=== PATIENT | female | born 1995 | race Caucasian/White ===

== ENCOUNTER 2020-09-22 08:56 | Outpatient (REF) | payer OTHER, SELFPAY | END 2020-09-22 08:57 | disposition home or self-care (01) | LOC: HO.LAB 08:56 | PROVIDERS: Visit Provider Internal Medicine | DX: Z20.828 Contact with and (suspected) exposure to other viral communicable diseases (principal) | CPT/HCPCS: C9803; U0003 ==

== ENCOUNTER 2020-11-02 07:47 | Outpatient (REF) | payer OTHER, SELFPAY ==
[2020-11-02 09:05] LABS: MANUAL DIFF FLAG NO
[2020-11-02 09:07] LABS: Eosinophils Absolute Auto 0.1 X10*3/uL (0.0-0.4); Imm Gran Abs Auto 0.01 X10*3/uL (0.00-0.03); Imm Gran Pct Auto 0.2 % (0.0-0.4); Lymphocytes Absolute Auto 1.5 X10*3/uL (1.2-4.9); Lymphocytes Percent Auto 37.2 % (20-40); Mean Corpuscular HGB Conc 34.3 g/dl (31.0-35.0); Mean Corpuscular Volume 90.4 fL (80-98); Monocytes Absolute Auto 0.3 X10*3/uL (0.1-1.2); Monocytes Percent Auto 7.5 % (2-11); Neutrophils Absolute Auto 2.1 X10*3/uL (2.0-8.3); Neutrophils Percent Auto 52.1 % (45-73); Platelet Count 168 X10*3/uL (160-400); Red Blood Count 3.87 X10*6/uL (4.20-5.50)
[2020-11-02 09:32] LABS: Alanine Aminotransferase 15 U/L (0-31); Albumin Level 4.5 g/dL (3.5-5.0); Alkaline Phosphatase 31 U/L (39-117); Anion Gap 12 (12-20); Aspartate Amino Transferase 14 U/L (5-31); Bilirubin Total 0.4 mg/dL (0.0-1.0); Blood Urea Nitrogen 11 mg/dL (9-16); Calcium 8.6 mg/dL (8.4-10.2); Carbon Dioxide 24 mmol/L (22-29); Chloride 107 mmol/L (96-108); Cholesterol 153 mg/dL; Estimated Glomerular Filt Rate > 60; Glucose Fasting 112 mg/dL (60-99); HDL Cholesterol 70 mg/dL; LDL Cholesterol Calculated 69 mg/dl; Sodium 139 mmol/L (135-145); Total Protein 6.9 g/dL (6.5-8.0); Triglycerides 71 mg/dL
[2020-11-02 09:47] LABS: Glucose Urine UA NEG (NEG); Leukocyte Esterase Urine NEG (NEG); Nitrite Urine NEG (NEG); Specific Gravity - Urine >= 1.030 (1.005-1.025); Urine Blood NEG (NEG); Urine Ketones NEG (NEG); Urine Protein NEG (NEG-TRACE)
[2020-11-02 09:55] LABS: Appearance Urine CLEAR; Color Urine YELLOW
[2020-11-02 09:56] LABS: TSH reflex Free T4 2.71 mIU/mL (0.32-4.0)
[2020-11-02 10:29] LABS: Vitamin B12 681 pg/mL (200-900)
== END 2020-11-02 07:48 | disposition home or self-care (01) ==
LOC: HO.LAB 07:47
PROVIDERS: PCP Internal Medicine; Visit Provider Internal Medicine
DX: Z00.00 Encounter for general adult medical examination without abnormal findings (principal); D51.9 Vitamin B12 deficiency anemia, unspecified; R53.83 Other fatigue
CPT/HCPCS: 36415; 80053; 80061; 81003; 82607; 82746; 84443; 85025

== ENCOUNTER 2021-11-08 07:00 | Outpatient (REF) | payer OTHER, SELFPAY ==
--- NOTE | ~2021-11-08 | XR_ITS ---
EXAMINATION: XR CHEST CLINICAL INFORMATION: Cough COMPARISON: Previous chest x-ray 2017 TECHNIQUE: 2 views of the chest were obtained. FINDINGS: The cardiac and mediastinal contours are normal. The lungs are clear. There is no pleural effusion or pneumothorax. There is mild curvature of the lower thoracic spine to the right. Bony structures are otherwise unremarkable. XR/XR chest 2V IMPRESSION: Unremarkable examination.
[2021-11-08 07:18] LABS: MANUAL DIFF FLAG NO
[2021-11-08 07:37] LABS: Basophils Percent Auto 0.7 % (0-2); Eosinophils Absolute Auto 0.1 X10*3/uL (0.0-0.4); Hematocrit 33.4 % (37.0-47.0); Hemoglobin 11.3 g/dl (12.0-16.0); Imm Gran Abs Auto 0.01 X10*3/uL (0.00-0.03); Imm Gran Pct Auto 0.2 % (0.0-0.4); Lymphocytes Absolute Auto 1.3 X10*3/uL (1.2-4.9); Mean Corpuscular HGB Conc 33.8 g/dl (31.0-35.0); Mean Corpuscular Hemoglobin 29.7 pg (27.0-33.0); Mean Corpuscular Volume 87.7 fL (80.0-98.0); Monocytes Absolute Auto 0.5 X10*3/uL (0.1-1.2); Neutrophils Absolute Auto 2.2 x10*3/uL (2.0-8.3); Neutrophils Percent Auto 53.1 % (45-73); Platelet Count 204 X10*3/uL (160-400); Red Blood Count 3.81 X10*6/uL (4.20-5.50); White Blood Count 4.1 X10*3/uL (4.8-10.8)
[2021-11-08 07:59] LABS: Alanine Aminotransferase 12 U/L (0-31); Albumin Level 4.5 g/dL (3.5-5.0); Alkaline Phosphatase 35 U/L (39-117); Anion Gap 10 (12-20); Aspartate Amino Transferase 12 U/L (5-31); Bilirubin Total 0.6 mg/dL (0.0-1.0); Blood Urea Nitrogen 11 mg/dL (9-16); Calcium 9.4 mg/dL (8.4-10.2); Carbon Dioxide 25 mmol/L (22-29); Chloride 107 mmol/L (96-108); Cholesterol 154 mg/dL; Estimated Glomerular Filt Rate > 60; Glucose Fasting 97 mg/dL (60-99); HDL Cholesterol 64 mg/dL; LDL Cholesterol Calculated 72 mg/dl; Potassium 3.8 mmol/L (3.3-5.1); Sodium 138 mmol/L (135-145); Total Protein 7.2 g/dL (6.5-8.0); Triglycerides 91 mg/dL
[2021-11-08 08:31] LABS: Folate 14.5 ng/mL (> or = 4.0); Vitamin B12 923 pg/mL (200-900)
[2021-11-08 09:07] LABS: Appearance Urine CLEAR; Color Urine YELLOW; Glucose Urine UA NEG (NEG); Leukocyte Esterase Urine NEG (NEG); Nitrite Urine NEG (NEG); Specific Gravity - Urine >= 1.030 (1.005-1.025); Urine Blood NEG (NEG); Urine Ketones NEG (NEG); Urine Protein NEG (NEG-TRACE)
[2021-11-09 13:31] LABS: IgA 173 mg/dL (47-310); IgG 1110 mg/dL (600-1640); IgM 139 mg/dL (50-300)
== END 2021-11-08 07:01 | disposition home or self-care (01) ==
LOC: HO.LAB 07:00
PROVIDERS: PCP Internal Medicine; Visit Provider Internal Medicine
DX: Z00.00 Encounter for general adult medical examination without abnormal findings (principal); E53.8 Deficiency of other specified B group vitamins; E55.9 Vitamin D deficiency, unspecified; R05.9 Cough, unspecified; R06.00 Dyspnea, unspecified; Z87.09 Personal history of other diseases of the respiratory system
CPT/HCPCS: 36415; 71046; 80053; 80061; 81003; 82306; 82607; 82746; 82784; 84443; 85025

== ENCOUNTER 2022-09-12 23:36 | Emergency (ER) | payer OTHER, SELFPAY ==
--- NOTE | ~2022-09-12 | US_ITS ---
EXAMINATION: OBSTETRIC ULTRASOUND - SECOND TRIMESTER CLINICAL INFORMATION: Vaginal bleeding and cramping. LMP 02/15/2022 (gestational age of 30 weeks and 0 days). COMPARISON: No similar priors. TECHNIQUE: Transabdominal imaging of the uterus was performed utilizing booth scale and color doppler technique, with m-mode imaging. FINDINGS: Single live intrauterine fetus in the cephalic position with cardiac activity detected at 126 bpm. movement is present. No perigestational hemorrhage. Examination is not targeted for evaluation of morphology or anatomy. The following biometric measurements were obtained: Biparietal diameter: 8 cm corresponding to gestational age of 32 weeks and 2 days. Head circumference: 29.3 cm corresponding to gestational age of 32 weeks and 3 days. Abdominal circumference: 24.8 cm corresponding to a gestational age of 29 weeks and 1 day. Femur length: 5.6 cm corresponding to gestational age of 29 weeks and 3 days. US/US OB limited IMPRESSION: * Single live intrauterine fetus with estimated gestational age by ultrasound of 30 weeks and 6 days. Estimated date of delivery 11/16/2022. * Estimated weight 1430 g, (26 percentile). It is important to note that this examination was not targeted for the assessment of anatomy, for which OB consultation and specialized imaging should be obtained if clinically deemed appropriate.
[2022-09-12 23:52] VITALS: BP 116/68; PULSE 82; RESP 16; TEMP 36.7; O2SAT 99; BMI 20.2
--- NOTE | 2022-09-13 00:02 | PC.NURSE ---
Pt reports she did more walking, moved some furniture, nothing really strenuous. Pt denies having any intercourse. pt reports light cramping nothing significantly. Pt is having bright red blood while wiping. Provider notified. pt change into hospital atire and awaiting to be seen . Report off to pt nurse LAUREN Bell. Will continue to monitor.
--- NOTE | 2022-09-13 00:12 | ED.PREGNANCY ---
HPI - General Chief complaint: Vaginal Bleeding Stated complaint: 30 Wks preg/Bleeding Time Seen by Provider: 09/13/22 00:00 Source: patient Mode of arrival: ambulatory Limitations: no limitations History of Present Illness HPI Narrative: 27 year old female hx of B12 deficiency A0, currently 30 weeks expected delivery date 11/22/2022 presents to the emergency department with lower abdominal pain, vaginal bleeding that started just prior to arrival. Patient reports she noted bright red blood when she went to the bathroom tonight, tells me it was coming from her vagina. Reports sharp intermitent lower abd pain that last a few seconds and then resolves. Tells me to date her prenancy has been uncomplicated, followed by [facility] Sophie Walker CNM, taking prenatals. Reports normal movement. Has only changed her liner once since this started. Patient tells me earlier today she was moving furniture, denies trauma to the area. She tells me she has intercourse today. Denies clear fluids. Deies fevers, chills, chest pain, shortness of breath, nausea, vomiting, headache, vision changes, dizziness. Related Data Home Medications Medication Instructions Recorded Confirmed prenat.vits,chetna,ewo-jiso-ooizc 1 tab PO DAILY 08/08/22 08/08/22 Previous Rx's Medication Instructions Recorded cholecalciferol (vitamin D3) 50 50 mcg PO DAILY 90 days #90 caps 08/07/22 mcg (2,000 unit) capsule Allergies Allergy/AdvReac Type Severity Reaction Status Date / Time No Known Allergies Allergy Verified 09/12/22 23:59 Review of Systems Review of Systems: Constitutional : No Weight loss, No Fever, No Chills, No Fatigue, No Malaise ENT/Mouth : No sore throat, No Rhinorrhea Eyes: No Eye Pain, No Swelling, No Redness Cardiovascular : No Chest Pain, No SOB, No Dyspnea on Exertion, No Orthopnea, No Edema, No Palpitations Respiratory : No Cough, No Sputum, No Wheezing Gastrointestinal : No Nausea, No Vomiting, No Diarrhea, No Constipation, + abdominal Pain, No Hematochezia, No Melena Genitourinary : No Dysuria, No Urinary Frequency, No Hematuria, + vaginal bleeding Musculoskeletal : No joint pain, No Myalgias, No Joint Swelling Skin : No Skin Lesions, No rash Neuro : No Weakness, No Numbness, No Dizziness, No Headache Psych : No Anxiety/Panic, No Depression All other systems reviewed and are negative Yes all other systems are reviewed and are negative [facility] Past Medical History Attestation statement: The following information was validated with the patient. Source: old records reviewed and nursing notes reviewed Medical History Vitamin B12 deficiency anemia Vitamin D deficiency Surgical History No pertinent past surgical history Family History Family History Father Poor high blood pressure control High cholesterol Hypertension Mother Poor high blood pressure control Hypertension Sister In good health Other Substance abuse Social History Social History Housing: House Alcohol intake: former Patient Tobacco Use Status: Never used Tobacco Second Hand Smoke Exposure: No Advance Directives: No Advance Directives Information Provided: No service: No Current occupational status: employed Cognitive needs: No Hearing needs: No Vision needs: No Physical Exam Vital Signs: Vital Signs: Last Vital Signs Temp 98.1 F 09/12/22 23:52 Pulse 82 09/12/22 23:52 Resp 16 09/12/22 23:52 BP 116/68 09/12/22 23:52 Pulse Ox 99 09/12/22 23:52 O2 Del Method 09/12/22 23:52 BMI result Body Mass Index 20.2 vss Appearance: Alert.? Oriented X3.? No acute distress.? Head: Normocephalic, atraumatic, no step-offs or deformities Eyes: Pupils equal, round and reactive to light.? CVS: Normal heart rate and rhythm.? Pulses normal.? Respiratory: No respiratory distress.? Breath sounds normal.? Abdomen: Soft abdomen + tenderness to lower abdomen. heart tone 139. Sterile bimanual exam: Closed cervical os, there is scant blood noted within the vaginal canal, bright red, no clots, mild adnexal tenderness b/l. Skin: Skin warm and dry.? Normal skin color.? Normal skin turgor.? Extremities: 5/5 strength to bilateral upper and lower extremities Neuro: Oriented X 3.? No motor deficit.? No sensory deficit. CN 2-12 intact Course Reevaluation(s) Reevaluation #1: Patient will go to [facility] to service of Dr.Kelly Aguilar for further evaluation and treatment as we do not have OBGYN here, and patient requires higher level of care. Time: 00:40 Reevaluation #2: Patient with slight normocytic anemia likely secondary to or vaginal bleeding. Chemistry and ultrasound pending. Time: 00:54 Reevaluation #3: Chemistry with no acute electrolyte abnormalities requiring intervention. Patient COVID negative. Ultrasound is done however results pending. Time: 01:10 Additional Reevaluation(s): At this time ambulance company here for transfer to [facility]. At time of transport patient hemodynamically stable. MDM - OB/Uterine Contractions MDM Narrative Medical decision making narrative: 0010 27-year-old female presents with painful vaginal bleeding, currently 30 weeks . Also reporting associated lower abdominal discomfort described as stabbing and intermittent in nature. Uncomplicated to date. This is patient's 1st . Followed by [facility] OBGYN. Denies trauma to the abdomen. Physical examination with discomfort with palpation to lower abdomen, patient with a abdomen soft with heart tones present at 139 beats per minute. Patient reports normal movement throughout exam. Bimanual exam revealing a closed cervical os, with mild red blood within vaginal canal, mild adnexal tenderness. Concerns for possible placenta previa versus placenta abruptio versus subchorionic hemorrhage. Or abnormal bleeding in 3rd trimester. As this facility does not have OBGYN will reach out to [facility] were patient is followed regularly. In the meantime will obtain labs, hCG, ultrasound, type and screen. I did personally do a ultrasound at bedside which showed heart tones 139, normal movement, cardiac activity noted, no signs of subchorionic hemorrhage. Will obtain a pelvic and transvaginal OB ultrasound at this time. Medical Records Attestation: I reviewed the patient's medical records. Lab Data Attestation: I reviewed the patient's lab results. Result diagrams: 09/13/22 00:43 09/13/22 00:43 Labs: Lab Results 09/13/22 09/13/22 09/13/22 Range/Units 00:43 00:43 00:45 WBC 6.3 (4.8-10.8) X10*3/uL RBC 3.27 L (4.20-5.50) X10*6/uL Hgb 10.4 L (12.0-16.0) g/dl Hct 29.5 L (37.0-47.0) % MCV 90.2 (80.0-98.0) fL MCH 31.8 (27.0-33.0) pg MCHC 35.3 H (31.0-35.0) g/dl RDW 13.9 (11.0-16.0) % Plt Count 160 (160-400) X10*3/uL MPV 10.1 (9.4-12.3) fL Immature Gran % (Auto) 0.6 H (0.0-0.4) % Neut % (Auto) 61.8 (45-73) % Lymph % (Auto) 26.4 (20-40) % [place] % (Auto) 10.0 (2-11) % Eos % (Auto) 0.9 (0-4) % Baso % (Auto) 0.3 (0-2) % Lymph # (Auto) 1.7 (1.2-4.9) X10*3/uL [place] # (Auto) 0.6 (0.1-1.2) X10*3/uL Eos # (Auto) 0.1 (0.0-0.4) X10*3/uL Baso # (Auto) 0.0 (0.0-0.2) X10*3/uL Abs Immat Gran (auto) 0.04 H (0.00-0.03) X10*3/uL Absolute Neuts (auto) 3.9 (2.0-8.3) x10*3/uL Absolute Nucleated RBC 0.000 (0.0-0.012) X10*3/uL Nucleated RBC % (auto) 0.0 (0.0-0.2) /100WBC Sodium 141 (135-145) mmol/L Potassium 3.9 (3.3-5.1) mmol/L Chloride 109 H (96-108) mmol/L Carbon Dioxide 20 L (22-29) mmol/L Anion Gap 16 (12-20) BUN 6 L (9-16) mg/dL Creatinine 0.57 (0.5-1.4) mg/dL Estim Creat Clear Calc 134.5 Estimated GFR > 60 Random Glucose 75 (60-115) mg/dL Calcium 8.8 D (8.4-10.2) mg/dL Total Bilirubin 0.2 (0.0-1.0) mg/dL AST 20 D (5-31) U/L ALT 20 (0-31) U/L Alkaline Phosphatase 50 D (39-117) U/L Total Protein 6.4 L (6.5-8.0) g/dL Albumin 3.7 (3.5-5.0) g/dL COVID-19 (EVELIO) Negative (Negative) COVID-19 Clin Com See Note Critical Care Time Critical Care Time Critical Care Time: Yes Total Critical Care Time: 45 Attestation: I attest to this time spent taking care of the patient, obtaining history, physical, reviewing labs, imaging, speaking to my attending, speaking to specialist. Discharge Plan Discharge Clinical Impression: Vaginal bleeding during , Bilateral lower abdominal pain Patient Disposition: [facility] Transfer Details: Patient will go to [facility] to service of Dr.Kelly Aguilar Prescriptions: No Action cholecalciferol (vitamin D3) 50 mcg (2,000 unit) capsule 50 mcg PO DAILY 90 Days Qty: 90 3RF prenat.vits,chetna,mya-ouge-vapeb Tablet 1 tab PO DAILY
[2022-09-13 00:48] LABS: Basophils Percent Auto 0.3 % (0-2); Eosinophils Absolute Auto 0.1 X10*3/uL (0.0-0.4); Eosinophils Percent Auto 0.9 % (0-4); Hematocrit 29.5 % (37.0-47.0); Hemoglobin 10.4 g/dl (12.0-16.0); Imm Gran Abs Auto 0.04 X10*3/uL (0.00-0.03); Imm Gran Pct Auto 0.6 % (0.0-0.4); Lymphocytes Absolute Auto 1.7 X10*3/uL (1.2-4.9); Lymphocytes Percent Auto 26.4 % (20-40); MANUAL DIFF FLAG NO; Mean Corpuscular HGB Conc 35.3 g/dl (31.0-35.0); Mean Corpuscular Hemoglobin 31.8 pg (27.0-33.0); Mean Corpuscular Volume 90.2 fL (80.0-98.0); Mean Platelet Volume 10.1 fL (9.4-12.3); Monocytes Absolute Auto 0.6 X10*3/uL (0.1-1.2); Neutrophils Absolute Auto 3.9 x10*3/uL (2.0-8.3); Neutrophils Percent Auto 61.8 % (45-73); Platelet Count 160 X10*3/uL (160-400); Red Blood Count 3.27 X10*6/uL (4.20-5.50); Red Cell Distribution Width 13.9 % (11.0-16.0); White Blood Count 6.3 X10*3/uL (4.8-10.8)
--- NOTE | 2022-09-13 00:54 | PC.NURSE ---
Call out to [facility] @005 spoke to oLrenzo to book an ALS ambulance to [facility]
[2022-09-13 01:05] LABS: COVID-19 Test Negative (Negative)
[2022-09-13 01:06] LABS: Alanine Aminotransferase 20 U/L (0-31); Albumin Level 3.7 g/dL (3.5-5.0); Alkaline Phosphatase 50 U/L (39-117); Anion Gap 16 (12-20); Aspartate Amino Transferase 20 U/L (5-31); Bilirubin Total 0.2 mg/dL (0.0-1.0); Blood Urea Nitrogen 6 mg/dL (9-16); Calcium 8.8 mg/dL (8.4-10.2); Carbon Dioxide 20 mmol/L (22-29); Chloride 109 mmol/L (96-108); Creatinine Clr Calc Pharmacy 134.5; Estimated Glomerular Filt Rate > 60; Glucose Random 75 mg/dL (60-115); Potassium 3.9 mmol/L (3.3-5.1); Sodium 141 mmol/L (135-145); Total Protein 6.4 g/dL (6.5-8.0)
[2022-09-13 01:15] LABS: Appearance Urine Clear; Color Urine Yellow; Glucose Urine UA Negative (Negative); Leukocyte Esterase Urine Moderate (2+) (Negative); Nitrite Urine Negative (Negative); Specific Gravity - Urine <= 1.005 (1.005-1.025); UMIC TRIGGER UACC YES; Urine Blood Negative (Negative); Urine Ketones Negative (Negative); Urine Protein Negative (Neg-Trace)
[2022-09-13 01:17] LABS: Bacteria Urine 1+ (None Seen); Hyaline Casts Urine 0-2 /LPF (0-2); RBC Urine 0-2 /HPF (0-2); UACC Culture Trigger YES
--- NOTE | 2022-09-13 01:20 | PC.NURSE ---
nurse to nurse
--- NOTE | 2022-09-13 01:33 | PC.NURSE ---
RN to RN report provided to LAUREN Jonas at [facility] [place]. Pt being transferred [facility]
[2022-09-13 01:35] LABS: HCG Quantitative 25495 mIU/mL
== END 2022-09-13 01:35 | disposition short-term general hospital (02) ==
PROVIDERS: Physician Assistant; Emergency Provider Internal Medicine; PCP Internal Medicine
DX: O20.0 Threatened abortion (principal); R10.2 Pelvic and perineal pain; Z20.822 Contact with and (suspected) exposure to COVID-19; Z79.899 Other long term (current) drug therapy
CPT/HCPCS: 36415; 76815; 80053; 81001; 84702; 85025; 86850; 86900; 86901; 87086; 87635; 99285

== ENCOUNTER 2023-02-20 10:07 | Outpatient (REF) | payer OTHER, SELFPAY ==
[2023-02-20 10:28] LABS: MANUAL DIFF FLAG NO
[2023-02-20 13:19] LABS: Basophils Percent Auto 0.7 % (0-2); Eosinophils Absolute Auto 0.1 X10*3/uL (0.0-0.4); Eosinophils Percent Auto 1.6 % (0-4); Hematocrit 36.8 % (37.0-47.0); Hemoglobin 12.6 g/dl (12.0-16.0); Imm Gran Abs Auto 0.01 X10*3/uL (0.00-0.03); Imm Gran Pct Auto 0.2 % (0.0-0.4); Lymphocytes Absolute Auto 1.4 X10*3/uL (1.2-4.9); Lymphocytes Percent Auto 32.6 % (20-40); Mean Corpuscular HGB Conc 34.2 g/dl (31.0-35.0); Mean Corpuscular Hemoglobin 30.1 pg (27.0-33.0); Mean Corpuscular Volume 87.8 fL (80.0-98.0); Mean Platelet Volume 11.6 fL (9.4-12.3); Monocytes Absolute Auto 0.3 X10*3/uL (0.1-1.2); Monocytes Percent Auto 7.7 % (2-11); Neutrophils Absolute Auto 2.5 x10*3/uL (2.0-8.3); Neutrophils Percent Auto 57.2 % (45-73); Platelet Count 198 X10*3/uL (160-400); Red Blood Count 4.19 X10*6/uL (4.20-5.50); Red Cell Distribution Width 13.2 % (11.0-16.0); White Blood Count 4.3 X10*3/uL (4.8-10.8)
[2023-02-20 13:55] LABS: Alanine Aminotransferase 19 U/L (0-31); Albumin Level 4.6 g/dL (3.5-5.0); Alkaline Phosphatase 58 U/L (39-117); Anion Gap 13 (12-20); Aspartate Amino Transferase 19 U/L (5-31); Bilirubin Total 0.8 mg/dL (0.0-1.0); Blood Urea Nitrogen 13 mg/dL (9-16); Calcium 9.1 mg/dL (8.4-10.2); Carbon Dioxide 23 mmol/L (22-29); Chloride 109 mmol/L (96-108); Cholesterol 167 mg/dL; Estimated Glomerular Filt Rate > 60; Glucose Fasting 79 mg/dL (60-99); HDL Cholesterol 66 mg/dL; LDL Cholesterol Calculated 90 mg/dl; Potassium 4.2 mmol/L (3.3-5.1); Sodium 141 mmol/L (135-145); Triglycerides 59 mg/dL
[2023-02-20 14:00] LABS: Appearance Urine Clear; Color Urine Yellow; Glucose Urine UA Negative (Negative); Leukocyte Esterase Urine Trace (Negative); Nitrite Urine Negative (Negative); UMIC TRIGGER UACC YES; Urine Blood Negative (Negative); Urine Ketones Negative (Negative); Urine Protein Negative (Neg-Trace)
[2023-02-20 14:05] LABS: Bacteria Urine None Seen (None Seen); Hyaline Casts Urine 0-2 /LPF (0-2); RBC Urine 0-2 /HPF (0-2); Squamous Epithelial Cell Urine 0-2 /HPF (0-2); WBC Urine 0-5 /HPF (0-5)
[2023-02-20 14:09] LABS: Folate 17.6 ng/mL (> or = 4.0); TSH reflex Free T4 1.57 uIU/mL (0.32-4.0); Vitamin B12 923 pg/mL (200-900); Vitamin D 25-OH Total 26.1 ng/mL (>30)
== END 2023-02-20 10:08 | disposition home or self-care (01) ==
LOC: HO.LAB 10:07
PROVIDERS: PCP Internal Medicine; Visit Provider Internal Medicine
DX: Z00.00 Encounter for general adult medical examination without abnormal findings (principal); E78.00 Pure hypercholesterolemia, unspecified; E55.9 Vitamin D deficiency, unspecified; D51.9 Vitamin B12 deficiency anemia, unspecified
CPT/HCPCS: 36415; 80053; 80061; 81001; 81003; 82306; 82607; 82746; 84443; 85025

== ENCOUNTER 2024-02-19 07:17 | Outpatient (REF) | payer OTHER, SELFPAY ==
[2024-02-19 11:28] LABS: MANUAL DIFF FLAG NO
[2024-02-19 11:50] LABS: Basophils Percent Auto 0.7 % (0-2); Eosinophils Absolute Auto 0.1 X10*3/uL (0.0-0.4); Eosinophils Percent Auto 1.9 % (0-4); Hematocrit 33.7 % (37.0-47.0); Hemoglobin 11.5 g/dl (12.0-16.0); Imm Gran Abs Auto 0.02 X10*3/uL (0.00-0.03); Imm Gran Pct Auto 0.5 % (0.0-0.4); Lymphocytes Absolute Auto 1.3 X10*3/uL (1.2-4.9); Lymphocytes Percent Auto 30.3 % (20-40); Mean Corpuscular HGB Conc 34.1 g/dl (31.0-35.0); Mean Corpuscular Hemoglobin 30.3 pg (27.0-33.0); Mean Corpuscular Volume 88.7 fL (80.0-98.0); Mean Platelet Volume 11.2 fL (9.4-12.3); Monocytes Absolute Auto 0.5 X10*3/uL (0.1-1.2); Monocytes Percent Auto 10.8 % (2-11); Neutrophils Absolute Auto 2.4 x10*3/uL (2.0-8.3); Neutrophils Percent Auto 55.8 % (45-73); Platelet Count 176 X10*3/uL (160-400); Red Cell Distribution Width 13.6 % (11.0-16.0); White Blood Count 4.3 X10*3/uL (4.8-10.8)
[2024-02-19 11:58] LABS: Appearance Urine Cloudy; Color Urine Yellow; Glucose Urine UA Negative (Negative); Leukocyte Esterase Urine Small (1+) (Negative); Nitrite Urine Negative (Negative); PH 5.5 (5.0-9.0); Specific Gravity - Urine 1.025 (1.005-1.025); UMIC TRIGGER UACC YES; Urine Blood Small (1+) (Negative); Urine Ketones Negative (Negative); Urine Protein Negative (Neg-Trace)
[2024-02-19 12:32] LABS: Bacteria Urine 3+ (None Seen); Hyaline Casts Urine 0-2 /LPF (0-2); RBC Urine 0-2 /HPF (0-2); UACC Culture Trigger YES; WBC Urine 21-50 /HPF (0-5)
[2024-02-19 17:58] LABS: Alanine Aminotransferase 13 U/L (0-31); Albumin Level 4.2 g/dL (3.5-5.0); Alkaline Phosphatase 35 U/L (39-117); Anion Gap 10 (12-20); Aspartate Amino Transferase 14 U/L (5-31); Bilirubin Total 0.3 mg/dL (0.0-1.0); Blood Urea Nitrogen 8 mg/dL (9-16); Calcium 8.8 mg/dL (8.4-10.2); Carbon Dioxide 24 mmol/L (22-29); Chloride 109 mmol/L (96-108); Cholesterol 136 mg/dL (<200); Estimated Glomerular Filt Rate > 60; Glucose Fasting 93 mg/dL (60-99); HDL Cholesterol 53 mg/dL (>40); LDL Cholesterol Calculated 71 mg/dL (<100); Potassium 3.7 mmol/L (3.3-5.1); Sodium 139 mmol/L (135-145); Total Protein 6.9 g/dL (6.5-8.0); Triglycerides 64 mg/dL (<150)
[2024-02-19 18:17] LABS: TSH reflex Free T4 2.67 uIU/mL (0.32-4.0); Vitamin D 25-OH Total 31.7 ng/mL (>30)
[2024-02-19 19:30] LABS: Folate 10.6 ng/mL (> or = 4.0); Vitamin B12 1236 pg/mL (200-900)
== END 2024-02-19 07:18 | disposition home or self-care (01) ==
LOC: HO.WFDLDS 07:17
PROVIDERS: Visit Provider Internal Medicine
DX: Z00.00 Encounter for general adult medical examination without abnormal findings (principal); I10 Essential (primary) hypertension; E53.8 Deficiency of other specified B group vitamins; E55.9 Vitamin D deficiency, unspecified; E78.00 Pure hypercholesterolemia, unspecified; R30.0 Dysuria
CPT/HCPCS: 36415; 80053; 80061; 81001; 81003; 82306; 82607; 82746; 84443; 85025; 87086

== ENCOUNTER 2024-03-03 17:14 | Outpatient (AMB) | payer OTHER, SELFPAY ==
[2024-03-03 17:34] VITALS: BP 102/68; BMI 19.9
--- NOTE | 2024-03-03 17:34 | MHC.PC.OV ---
Vital Signs 03/03/24 17:34 Height 5 ft 7 in Weight 127 lb BMI 19.9 BP 102/68 Blood Pressure Location Lt brachial Position Sitting Intake Visit Reasons: pe Intake Note: Patient here for a physical exam Staff Engineer Required: No Accompanied by: Self / Same As Patient Allergies No Known Allergies Allergy (Verified 03/03/24 18:05) Medication List - Last Reconciled 03/03/24 by Chivo Wang MD cholecalciferol (vitamin D3) 50 mcg PO DAILY 90 days ferrous sulfate 325 mg PO DAILY Tobacco use date assessed: 03/03/24 Dental Screening Dental Screen Date: 03/03/24 Did you have a dental visit in the last 12 months?: Yes Did you have a dental problem in the last 6 months where you did not have access to dental care?: No Was dental information given to patient?: Patient has dentist HPI pe HPI Details Patient comes in today for her annual physical examination States that she feels okay She denies any headaches or dizziness Denies any chest pains, no SOB No nausea/vomiting, no abdominal pain No change in bowel habits noted Denies any acute urinary symptoms States that she just had an IUD inserted by her beater out a couple of months ago and recalls that she had a lot of vaginal bleeding shortly afterwards but this has subsided now She is up-to-date with her annual pap smear and gynecologic exam Adds that she has been going to her chiropractor every 2 weeks for a while now to help address her recurrent neck and back pains Feels that the chiropractic treatments that she has been getting are helping She presently has a 15 months old toddler at home and states that her neck and back have been bothering her a lot since she gave more than a year ago She had her follow up labs done a couple of weeks ago - to discuss her results [facility] Medical History Vitamin D deficiency Vitamin B12 deficiency anemia Surgical History No pertinent past surgical history Family History Father Poor high blood pressure control High cholesterol Hypertension Mother Poor high blood pressure control Hypertension Sister In good health Other Substance abuse Social History Housing: House Alcohol intake: current Alcohol intake frequency: holidays/special occasions only Alcohol type: wine and hard liquor Patient Tobacco Use Status: Never used Tobacco e-Cigarette/Vaping Use: Never Used Second Hand Smoke Exposure: No service: No Current occupational status: employed Current occupational exposures/hazards: No Cognitive needs: No Hearing needs: No Vision needs: No Questionnaire PHQ-9 Over the last 2 weeks, how often have you been bothered by any of the following problems? 1. Little interest or pleasure in doing things: not at all 2. Feeling down, depressed, or hopeless: not at all 3. Trouble falling or staying asleep, or sleeping too much: not at all 4. Feeling tired or having little energy: not at all 5. Poor appetite or overeating: not at all 6. Feeling bad about yourself - or that you are a failure or have let yourself or your family down: not at all 7. Trouble concentrating on things, such as reading the newspaper or watching television: not at all 8. Moving or speaking so slowly that other people could have noticed. Or the opposite - being so fidgety or restless that you have been moving around a lot more than usual: not at all 9. Thoughts that you would be better off or of hurting yourself in some way: not at all Total score: 0 Depression Screening Interpretation: Negative Depression Screening Done: Yes 18738 - PHQ-9 Billing: Yes Source: Developed by Drs. Khurram Maria, Mell Webber, Sammy Erickson and colleagues, with an educational ale from [email or web address]. Thrive Questionnaire Date Thrive assessed: 03/03/24 I am a: Patient What is your living situation today?: I have a steady place to live Within the past 12 months, did the food you bought not last and you didn't have the money to get more?: Never true Within the past 12 months, did you worry whether your food would run out before you got money to buy more?: Never true Do you have trouble paying for medicines?: No Do you have trouble getting transportation to medical appointments?: No Do you have trouble paying your heating and electricity bill?: No Do you have trouble taking care of your child, family member or friend?: No Do you have trouble with day-to-day activities such as bathing, preparing meals, shopping, managing finances, etc.?: No Are you currently unemployed and looking for a job?: No Are you interested in more education?: No Please select the resources that you would like help with: None Currently or been in a relationship where the following occur: no concerns reported THRIVE Score: 0 AUDIT C Alcohol Use Questionnaire (AUDIT-C) 1. How often do you have a drink containing alcohol?: Monthly or less 2. How many drinks containing alcohol do you have on a typical day when you are drinking?: 1 or 2 3. How often do you have six or more drinks on one occasion?: Never Total Score: 1 Score Reviewed/Action Taken: Yes CHRISTEL-7 AMB Questionnaire CHRISTEL-7 Date CHRISTEL - 7 assessed: 03/03/24 Feeling nervous, anxious, or on edge: 1 = Several days Not being able to stop or control worryin = Not at all Worrying too much about different things: 1 = Several days Trouble relaxin = Several days Being so restless that it is hard to sit still: 0 = Not at all Becoming easily annoyed or irritable: 1 = Several days Feeling afraid as if something awful might happen: 1 = Several days Total CHRISTEL-7 score (0-4 normal; 5-9 mild; 10-14 moderate; 15-21 severe): 5 Source: Developed by Drs. Khurram Maria, Mell Webber, Sammy Erickson and colleagues, with an educational ale from [email or web address]. Review of Systems Const Denies chills, Denies fatigue, Denies fever(s), Denies headache(s) and Denies malaise Eyes Denies blurry vision, Denies change in vision, Denies irritation and Denies itchy eyes ENT Denies dysphagia, Denies dizziness, Denies otalgia, Denies headache(s), Denies nasal congestion, Reports neck pain (recurrent), Denies odynophagia, Denies sinus pain and Denies sore throat Card Denies chest pain, Denies rapid heart rate, Denies irregular heart rhythm, Denies palpitations and Denies dyspnea Resp Denies chest congestion, Denies cough, Denies dyspnea and Denies wheezing GI Denies abdominal pain, Denies bloating, Denies constipation, Denies dysphagia, Denies heartburn, Denies diarrhea, Denies nausea, Denies odynophagia and Denies vomiting Denies hematuria, Denies urinary frequency, Denies dysuria, Denies urinary incontinence and Denies urinary urgency Musc Reports as per HPI, Reports back pain (recurrent), Denies arthralgias, Denies joint swelling, Denies muscle weakness and Reports neck pain (recurrent) Skin/Breast Denies breast pain, Denies breast mass, Denies change in pigmentation, Denies lesions, Denies rash and Denies unusual bruising Neuro Denies dizziness, Denies headache(s) and Denies paresthesias Psych Denies anxiety and Denies depression Endo Denies fatigue and Denies palpitations Rowdy/Lymph Denies easy bruising Aller/Immun Denies itchy eyes and Denies wheezing Physical exam (Primary Care) Vital Signs: Last Vital Signs BP 102/68 03/03/24 17:34 BMI result Body Mass Index 19.9 Tobacco/Smoking Status: Tobacco use Status Tobacco use date assessed 03/03/24 03/03/24 17:41 Patient Tobacco Use Status Never used Tobacco 03/03/24 17:41 e-Cigarette/Vaping Use Never Used 03/03/24 17:41 PHQ-9: PHQ-9 Score PHQ-9: Total score 0 03/03/24 17:41 Depression Screening Interpretation: Negative Thrive Assessment: Date of Thrive Assessment Date Thrive assessed 03/03/24 03/03/24 17:41 Currently or been in a relationship where the following occur: no concerns reported Const General: no acute distress, alert and awake Orientation/consciousness: patient oriented x3 HENMT Head: Yes normocephalic and Yes atraumatic Ears: external ears normal, TM's normal bilaterally and EAC's normal General nose exam: No nasal discharge present Face and sinus: Yes normal facial exam and Yes sinuses nontender Teeth and gingiva: dentition normal Throat: Yes posterior oropharynx normal and Yes tonsils normal (no TP congestion) Eyes Eyelids: Yes eyelids normal Conjunctivae: conjunctivae normal Pupils: Equal, round and reactive pupils present EOM: EOMs intact bilaterally Neck Neck: Yes no lymphadenopathy and Yes supple Thyroid: Thyroid normal Resp Auscultation: clear to auscultation bilaterally, no rales and no wheezes Cardio Rate: regular rate Rhythm: regular rhythm Heart sounds: no murmurs GI Palpation (GI): Soft to palpation, nontender and No hepatosplenomegaly present Auscultation: normal bowel sounds General: Yes no CVA tenderness Back/Spine/Pelvis Back: no CVA tenderness Cervical Spine: cervical muscular tenderness and No Cervical spine tenderness Thoracic/Lumbar Spine: paraspinal muscle tenderness bilaterally in the mid thoracic, in the lower thoracic, in the upper lumbar, in the mid lumbar and in the lower lumbar, No thoracic spinal tenderness and No lumbar spinal tenderness Skin Lesions: no lesions Rashes: no rashes Neuro General: patient oriented x3, moves all extremities, no focal motor deficits and CN's II-XI intact bilaterally Cranial nerves: Yes Equal, round and reactive pupils present Cognition (Neuro): normal cognition Gait exam (Neuro): Normal gait present Extrem General: Yes no clubbing, cyanosis or edema Results Reviewed Results Reviewed: Laboratory Tests 02/19/24 02/19/24 07:20 07:24 WBC 4.3 L Hgb 11.5 L Hct 33.7 L Plt Count 176 Sodium 139 Potassium 3.7 Creatinine 0.67 Estimated GFR > 60 Fasting Glucose 93 Calcium 8.8 AST 14 ALT 13 Triglycerides 64 Cholesterol 136 LDL Cholesterol, Calc 71 HDL Cholesterol 53 Vitamin B12 1236 H 25-OH Vitamin D Total 31.7 TSH 2.67 Ur Specific [place] 1.025 Urine Protein Negative Urine Glucose (UA) Negative Urine Blood Small (1+) H Urine Nitrite Negative Ur Leukocyte Esterase Small (1+) H Assessment and Plan Assessment & Plan (1) Annual physical exam: Code(s): Z00.00 - Encounter for general adult medical examination without abnormal findings Plan: Results of her labs done a couple of weeks ago reviewed and discussed with patient She is up-to-date with her annual pap smear and gynecology exam (2) Reactive airway disease: Code(s): J45.909 - Unspecified asthma, uncomplicated Qualifiers: Asthma severity: unspecified severity Asthma persistence: unspecified Asthma complication type: with acute exacerbation Qualified Code(s): J45.901 - Unspecified asthma with (acute) exacerbation Plan: Chest x-rays done in November 2021 came out normal Immunoglobulin panel done to assess her Hx of frequent respiratory infections in November 2021 also came out normal Allergy testing was held due to her back then; can be revisited anytime patient feels ready and if she still wants to get this done Patient is advised that she can continue using her Albuterol HFA 1 to 2 inhalations Q 6 hours as needed (3) Vitamin B12 deficiency anemia: Code(s): D51.9 - Vitamin B12 deficiency anemia, unspecified Qualifiers: Vitamin B12 deficiency anemia type: other dietary B12 deficiency Qualified Code(s): D51.3 - Other dietary vitamin B12 deficiency anemia Plan: Corrected; her B12 level on her labs done a couple of weeks ago is now very high at >1000 (1236 pg/ml) Continue Ferrous sulfate 325 mg QD She is advised to try cutting back on her B12 1000 mcg tablets to 1 tablet twice a week for now (4) Anemia: Code(s): D64.9 - Anemia, unspecified Qualifiers: Anemia type: unspecified type Qualified Code(s): D64.9 - Anemia, unspecified Plan: Advised that this is likely due to a combination of iron deficiency as well as blood loss She developed anemia while she was last year - she was seen and evaluated by hematology and was recommended to just take oral iron supplements as all of her tests came back normal Continue Ferrous Sulfate 325 mg QD Will recheck her CBC in 1 year for follow up (5) Vitamin D deficiency: Code(s): E55.9 - Vitamin D deficiency, unspecified Plan: Corrected on her recent labs Continue OTC Vitamin D3 2000 units QD (6) Neck pain: Code(s): M54.2 - Cervicalgia Plan: Is most likely musculoskeletal and also likely related to posture She has been receiving treatments regularly every couple of weeks from her chiropractor and she feels that the treatments are helping (7) Back pain: Code(s): M54.9 - Dorsalgia, unspecified Qualifiers: Back pain location: back pain in unspecified location Chronicity: unspecified Back pain laterality: bilateral Qualified Code(s): M54.9 - Dorsalgia, unspecified Plan: Is also likely musculoskeletal Continue chiropractic treatments every 2 weeks as scheduled - patient feels that her treatments are helping Is advised to call if she feels that her back (and neck) symptoms are progressing despite regularl chiropractic treatments Plan To return in 1 year for her next annual physical examination Orders: Orders Vitamin D 25-OH Total 350 Days E55.9 - Vitamin D deficiency, unspecified, Z00.00 - Encounter for general adult medical examination without abnormal findings Complete Blood Count Auto Diff 350 Days D64.9 - Anemia, unspecified, Z00.00 - Encounter for general adult medical examination without abnormal findings Comprehensive [place]. Panel Fast 350 Days E78.00 - Pure hypercholesterolemia, unspecified, Z00.00 - Encounter for general adult medical examination without abnormal findings Lipid Panel 350 Days E78.00 - Pure hypercholesterolemia, unspecified, Z00.00 - Encounter for general adult medical examination without abnormal findings TSH reflex Free T4 350 Days E78.00 - Pure hypercholesterolemia, unspecified, Z00.00 - Encounter for general adult medical examination without abnormal findings UA CC w/rflx Micro + Cult 350 Days R30.0 - Dysuria, Z00.00 - Encounter for general adult medical examination without abnormal findings Vitamin B12 and Folate 350 Days E53.8 - Deficiency of other specified B group vitamins, Z00.00 - Encounter for general adult medical examination without abnormal findings Coding Level of Care Code Est Pt Prev Care [id number]) Diagnoses Annual physical exam Z00.00 Reactive airway disease with acute exacerbation, unspecified asthma severity, unspecified whether persistent J45.901 Asthma severity: unspecified severity Asthma persistence: unspecified Asthma complication type: with acute exacerbation Other dietary vitamin B12 deficiency anemia D51.3 Vitamin B12 deficiency anemia type: other dietary B12 deficiency Anemia, unspecified type D64.9 Anemia type: unspecified type Vitamin D deficiency E55.9 Neck pain M54.2 Bilateral back pain, unspecified back location, unspecified chronicity M54.9 Back pain location: back pain in unspecified location Chronicity: unspecified Back pain laterality: bilateral
== END 2024-03-03 18:13 | disposition home or self-care (01) ==
PROVIDERS: PCP Internal Medicine; Visit Provider Internal Medicine
DX: Z00.00 Encounter for general adult medical examination without abnormal findings (principal); J45.901 Unspecified asthma with (acute) exacerbation; D51.3 Other dietary vitamin B12 deficiency anemia; D64.9 Anemia, unspecified; E55.9 Vitamin D deficiency, unspecified; M54.2 Cervicalgia; M54.9 Dorsalgia, unspecified
CPT/HCPCS: 99395

== ENCOUNTER 2025-03-03 07:48 | Outpatient (REF) | payer OTHER, SELFPAY ==
[2025-03-03 11:30] LABS: MANUAL DIFF FLAG NO
[2025-03-03 11:39] LABS: Appearance Urine Clear; Color Urine Yellow; Glucose Urine UA Negative (Negative); Leukocyte Esterase Urine Small (1+) (Negative); Nitrite Urine Negative (Negative); PH 5.5 (5.0-9.0); Specific Gravity - Urine 1.025 (1.005-1.025); UMIC TRIGGER UACC YES; Urine Blood Large (3+) (Negative); Urine Ketones Negative (Negative); Urine Protein Negative (Neg-Trace)
[2025-03-03 11:42] LABS: Eosinophils Absolute Auto 0.3 X10*3/uL (0.0-0.4); Eosinophils Percent Auto 6.5 % (0-4); Hematocrit 33.8 % (37.0-47.0); Hemoglobin 11.3 g/dl (12.0-16.0); Imm Gran Abs Auto 0.01 X10*3/uL (0.00-0.03); Imm Gran Pct Auto 0.3 % (0.0-0.4); Lymphocytes Absolute Auto 1.4 X10*3/uL (1.2-4.9); Lymphocytes Percent Auto 35.8 % (20-40); Mean Corpuscular HGB Conc 33.4 g/dl (31.0-35.0); Mean Corpuscular Hemoglobin 29.4 pg (27.0-33.0); Mean Platelet Volume 10.9 fL (9.4-12.3); Monocytes Absolute Auto 0.3 X10*3/uL (0.1-1.2); Monocytes Percent Auto 7.5 % (2-11); Neutrophils Percent Auto 48.9 % (45-73); Platelet Count 185 X10*3/uL (160-400); Red Blood Count 3.84 X10*6/uL (4.20-5.50); Red Cell Distribution Width 13.1 % (11.0-16.0)
[2025-03-03 11:52] LABS: Bacteria Urine Trace (None Seen); Hyaline Casts Urine 0-2 /LPF (0-2); UACC Culture Trigger YES
[2025-03-03 12:02] LABS: Alanine Aminotransferase 17 U/L (0-31); Albumin Level 4.3 g/dL (3.5-5.0); Alkaline Phosphatase 32 U/L (39-117); Anion Gap 10 (12-20); Aspartate Amino Transferase 22 U/L (5-31); Bilirubin Total 0.3 mg/dL (0.0-1.0); Blood Urea Nitrogen 9 mg/dL (9-16); Calcium 8.8 mg/dL (8.4-10.2); Carbon Dioxide 26 mmol/L (22-29); Chloride 108 mmol/L (96-108); Cholesterol 153 mg/dL (<200); Estimated Glomerular Filt Rate > 60; Glucose Fasting 92 mg/dL (60-99); HDL Cholesterol 60 mg/dL (>40); LDL Cholesterol Calculated 83 mg/dL (<100); Potassium 3.9 mmol/L (3.3-5.1); Sodium 140 mmol/L (135-145); Total Protein 6.9 g/dL (6.5-8.0); Triglycerides 51 mg/dL (<150)
[2025-03-03 12:20] LABS: TSH reflex Free T4 2.08 uIU/mL (0.32-4.0); Vitamin D 25-OH Total 49.5 ng/mL (>30)
[2025-03-03 12:25] LABS: Folate 12.1 ng/mL (> or = 4.0); Vitamin B12 1367 pg/mL (200-900)
== END 2025-03-03 07:49 | disposition home or self-care (01) ==
LOC: HO.WFDLDS 07:48
PROVIDERS: Visit Provider Internal Medicine
DX: Z00.00 Encounter for general adult medical examination without abnormal findings (principal); E78.00 Pure hypercholesterolemia, unspecified; E55.9 Vitamin D deficiency, unspecified; D64.9 Anemia, unspecified; E53.8 Deficiency of other specified B group vitamins; R30.0 Dysuria
CPT/HCPCS: 36415; 80053; 80061; 81001; 82306; 82607; 82746; 84443; 85025; 87086

== ENCOUNTER 2025-03-04 16:49 | Outpatient (AMB) | payer OTHER, SELFPAY ==
[2025-03-04 16:57] VITALS: BP 110/64; PULSE 85; RESP 16; TEMP 36.3; O2SAT 99; BMI 18.5
--- NOTE | 2025-03-04 16:57 | MHC.PC.OV ---
Vital Signs 03/04/25 16:57 Height 5 ft 7 in Weight 118 lb 3.2 oz BMI 18.5 BP 110/64 Blood Pressure Location Lt brachial Position Sitting Respiration 16 Pulse 85 Pulse Source Pulse Oximeter Temp 97.3 F Temp Source Temporal Artery Scan Pulse Oximetry (%) 99 Oxygen Delivery Method Room Air Intake Visit Reasons: annual exam [employer] Associate Required: No Accompanied by: Self / Same As Patient Allergies No Known Allergies Allergy (Verified 03/04/25 18:09) Medication List - Last Reconciled 03/04/25 by Chivo Wang MD cholecalciferol (vitamin D3) 50 mcg PO DAILY 90 days cyanocobalamin (vitamin B-12) (Vitamin B-12) 1,000 mcg PO DAILY ferrous sulfate 325 mg PO DAILY Tobacco use date assessed: 03/04/25 Dental Screening Dental Screen Date: 03/04/25 Did you have a dental visit in the last 12 months?: Yes Did you have a dental problem in the last 6 months where you did not have access to dental care?: No Was dental information given to patient?: Patient has dentist HPI annual exam HPI Details Patient comes in today for her annual physical examination States that she feels okay She denies any headaches or dizziness Denies any chest pains, no SOB No nausea/vomiting, no abdominal pain No change in bowel habits noted She denies any acute urinary symptoms She had her follow up labs done yesterday - to discuss her results States that she is up-to-date with her yearly gynecology exam and pap smear PENDING SALE TO [facility] Medical History Vitamin D deficiency Vitamin B12 deficiency anemia Surgical History No pertinent past surgical history Family History Father Poor high blood pressure control High cholesterol Hypertension Mother Poor high blood pressure control Hypertension Sister In good health Other Substance abuse Social History Housing: House Alcohol intake: current Alcohol intake frequency: holidays/special occasions only Alcohol type: wine and hard liquor Patient Tobacco Use Status: Never used Tobacco e-Cigarette/Vaping Use: Never Used Second Hand Smoke Exposure: No service: No Current occupational status: employed Current occupational exposures/hazards: No Cognitive needs: No Hearing needs: No Vision needs: No Female Reproductive History Menstrual Date of last menstrual period: 02/27/25 control method: none Questionnaire PHQ-9 Over the last 2 weeks, how often have you been bothered by any of the following problems? 1. Little interest or pleasure in doing things: not at all 2. Feeling down, depressed, or hopeless: not at all 3. Trouble falling or staying asleep, or sleeping too much: several days 4. Feeling tired or having little energy: several days 5. Poor appetite or overeating: not at all 6. Feeling bad about yourself - or that you are a failure or have let yourself or your family down: not at all 7. Trouble concentrating on things, such as reading the newspaper or watching television: not at all 8. Moving or speaking so slowly that other people could have noticed. Or the opposite - being so fidgety or restless that you have been moving around a lot more than usual: not at all 9. Thoughts that you would be better off or of hurting yourself in some way: not at all Total score: 2 Depression Screening Interpretation: Negative Depression Screening Done: Yes 47654 - PHQ-9 Billing: Yes Source: Developed by Drs. Khurram Maria, Mell Webber, Sammy Erickson and colleagues, with an educational ale from [employer]. Thrive Questionnaire Date Thrive assessed: 03/04/25 I am a: Patient What is your living situation today?: I have a steady place to live Within the past 12 months, did the food you bought not last and you didn't have the money to get more?: Never true Within the past 12 months, did you worry whether your food would run out before you got money to buy more?: Never true Do you have trouble paying for medicines?: No Do you have trouble getting transportation to medical appointments?: No Do you have trouble paying your heating and electricity bill?: No Do you have trouble taking care of your child, family member or friend?: No Do you have trouble with day-to-day activities such as bathing, preparing meals, shopping, managing finances, etc.?: No Are you currently unemployed and looking for a job?: No Are you interested in more education?: No Please select the resources that you would like help with: None Currently or been in a relationship where the following occur: No concerns reported THRIVE Score: 0 AUDIT C Alcohol Use Questionnaire (AUDIT-C) 1. How often do you have a drink containing alcohol?: Never 3. How often do you have six or more drinks on one occasion?: Never Total Score: 0 Score Reviewed/Action Taken: Yes CHRISTEL-7 AMB Questionnaire CHRISTEL-7 Date CHRISTEL - 7 assessed: 03/04/25 Feeling nervous, anxious, or on edge: 2 = More than half the days Not being able to stop or control worryin = More than half the days Worrying too much about different things: 2 = More than half the days Trouble relaxin = More than half the days Being so restless that it is hard to sit still: 1 = Several days Becoming easily annoyed or irritable: 1 = Several days Feeling afraid as if something awful might happen: 0 = Not at all Total CHRISTEL-7 score (0-4 normal; 5-9 mild; 10-14 moderate; 15-21 severe): 10 Source: Developed by Drs. Khurram Maria, Mell Webber, Sammy Erickson and colleagues, with an educational ale from [employer]. CHRISTEL-7 Assessment Billing CHRISTEL-7 Assessment Tool: CHRISTEL-7 Assessment 43037 Review of Systems Const Denies chills, Denies fatigue, Denies fever(s), Denies headache(s) and Denies malaise Eyes Denies blurry vision, Denies change in vision, Denies irritation and Denies itchy eyes ENT Denies dysphagia, Denies dizziness, Denies otalgia, Denies headache(s), Denies nasal congestion, Denies neck pain, Denies odynophagia, Denies sinus pain and Denies sore throat Card Denies chest pain, Denies rapid heart rate, Denies irregular heart rhythm, Denies palpitations and Denies dyspnea Resp Denies chest congestion, Denies cough, Denies dyspnea and Denies wheezing GI Denies abdominal pain, Denies bloating, Denies constipation, Denies dysphagia, Denies heartburn, Denies diarrhea, Denies nausea, Denies odynophagia and Denies vomiting Denies hematuria, Denies urinary frequency, Denies dysuria, Denies urinary incontinence and Denies urinary urgency Musc Denies back pain, Denies arthralgias, Denies joint swelling, Denies muscle weakness and Denies neck pain Skin/Breast Denies breast pain, Denies breast mass, Denies change in pigmentation, Denies lesions, Denies rash and Denies unusual bruising Neuro Denies dizziness, Denies headache(s) and Denies paresthesias Psych Denies anxiety and Denies depression Endo Denies fatigue and Denies palpitations Rowdy/Lymph Denies easy bruising Aller/Immun Denies itchy eyes and Denies wheezing Physical exam (Primary Care) Vital Signs: Last Vital Signs Temp 97.3 F 03/04/25 16:57 Pulse 85 03/04/25 16:57 Resp 16 03/04/25 16:57 BP 110/64 03/04/25 16:57 Pulse Ox 99 03/04/25 16:57 Oxygen Delivery Method Room Air 03/04/25 16:57 BMI result Body Mass Index 18.5 Tobacco/Smoking Status: Tobacco use Status Tobacco use date assessed 03/04/25 03/04/25 17:04 Patient Tobacco Use Status Never used Tobacco 03/04/25 17:04 e-Cigarette/Vaping Use Never Used 03/04/25 17:04 PHQ-9: PHQ-9 Score PHQ-9: Total score 2 03/04/25 17:11 Depression Screening Interpretation: Negative Thrive Assessment: Date of Thrive Assessment Date Thrive assessed 03/04/25 03/04/25 17:04 Currently or been in a relationship where the following occur: No concerns reported Const General: no acute distress, alert and awake Orientation/consciousness: patient oriented x3 HENMT Head: Yes normocephalic and Yes atraumatic Ears: external ears normal, TM's normal bilaterally and EAC's normal General nose exam: No nasal discharge present Face and sinus: Yes normal facial exam and Yes sinuses nontender Teeth and gingiva: dentition normal Throat: Yes posterior oropharynx normal and Yes tonsils normal (no TP congestion) Eyes Eyelids: Yes eyelids normal Conjunctivae: conjunctivae normal Pupils: Equal, round and reactive pupils present EOM: EOMs intact bilaterally Neck Neck: Yes supple and No lymphadenopathy Thyroid: Thyroid normal Resp Auscultation: clear to auscultation bilaterally, no rales and no wheezes Cardio Rate: regular rate Rhythm: regular rhythm Heart sounds: no murmurs GI Palpation (GI): Soft to palpation, nontender and No hepatosplenomegaly present Auscultation: normal bowel sounds General: Yes no CVA tenderness Back/Spine/Pelvis Back: no CVA tenderness Thoracic/Lumbar Spine: thoracic and lumbar spine normal to inspection Skin Lesions: no lesions Rashes: no rashes Neuro General: patient oriented x3, moves all extremities, no focal motor deficits and CN's II-XI intact bilaterally Cranial nerves: Yes Equal, round and reactive pupils present Cognition (Neuro): normal cognition Gait exam (Neuro): Normal gait present Extrem General: Yes no clubbing, cyanosis or edema Results Reviewed Results Reviewed: Laboratory Tests 03/03/25 03/03/25 07:51 07:58 WBC 4.0 L Hgb 11.3 L Hct 33.8 L Plt Count 185 Sodium 140 Potassium 3.9 Creatinine 0.65 Estimated GFR > 60 Fasting Glucose 92 Calcium 8.8 AST 22 ALT 17 Triglycerides 51 Cholesterol 153 LDL Cholesterol, Calc 83 HDL Cholesterol 60 Vitamin B12 1367 H 25-OH Vitamin D Total 49.5 TSH 2.08 Ur Specific [place] 1.025 Urine Protein Negative Urine Glucose (UA) Negative Urine Blood Large (3+) H Urine Nitrite Negative Ur Leukocyte Esterase Small (1+) H Coding Level of Care Code Est Pt Prev Care 18-39y(97347) Diagnoses Annual physical exam Z00.00 Reactive airway disease with acute exacerbation, unspecified asthma severity, unspecified whether persistent J45.901 Asthma severity: unspecified severity Asthma persistence: unspecified Asthma complication type: with acute exacerbation Other dietary vitamin B12 deficiency anemia D51.3 Vitamin B12 deficiency anemia type: other dietary B12 deficiency Anemia, unspecified type D64.9 Anemia type: unspecified type Vitamin D deficiency E55.9 Additional Codes CHRISTEL-7 Assessment Billing - CHRISTEL-7 Assessment Tool: CHRISTEL-7 Assessment 10341 ([id number]) PHQ-9 - 99925 - PHQ-9 Billing: Yes ([id number]) Assessment & Plan Assessment & Plan (1) Annual physical exam: Code(s): Z00.00 - Encounter for general adult medical examination without abnormal findings Category: Medical Plan: Results of her labs done yesterday reviewed and discussed with patient She is reportedly up-to-date with her yearly gynecology exam and pap smear (2) Reactive airway disease: Code(s): J45.909 - Unspecified asthma, uncomplicated Category: Medical Qualifiers: Asthma severity: unspecified severity Asthma persistence: unspecified Asthma complication type: with acute exacerbation Qualified Code(s): J45.901 - Unspecified asthma with (acute) exacerbation Plan: Chest x-rays done in November 2021 came out normal Immunoglobulin panel done to assess her Hx of frequent respiratory infections in November 2021 also came out normal Allergy testing was held due to her back then; can be revisited anytime patient feels ready and if she still wants to get this done Patient is advised that she can continue using her Albuterol HFA 1 to 2 inhalations Q 6 hours as needed in the meantime (3) Vitamin B12 deficiency anemia: Code(s): D51.9 - Vitamin B12 deficiency anemia, unspecified Category: Medical Qualifiers: Vitamin B12 deficiency anemia type: other dietary B12 deficiency Qualified Code(s): D51.3 - Other dietary vitamin B12 deficiency anemia Plan: Corrected; her B12 level on her labs done yesterday remains very high at >1000 (1367 pg/ml) Continue Ferrous sulfate 325 mg QD She is advised to cut back on her B12 tablets to 500 mcg daily Will recheck this next year for follow up (4) Anemia: Code(s): D64.9 - Anemia, unspecified Category: Medical Qualifiers: Anemia type: unspecified type Qualified Code(s): D64.9 - Anemia, unspecified Plan: Patient is advised that this is likely due to a combination of iron deficiency as well as blood loss from her menstrual period - states that she just finished her monthly period a couple of days ago Continue Ferrous Sulfate 325 mg QD Will recheck her CBC in 1 year for follow up (5) Vitamin D deficiency: Code(s): E55.9 - Vitamin D deficiency, unspecified Category: Medical Plan: Continue OTC Vitamin D3 2000 units QD Plan To return in 1 year for her next annual physical examination Orders: Orders Comprehensive [place]. Panel Fast 1 Year E78.00 - Pure hypercholesterolemia, unspecified, Z00.00 - Encounter for general adult medical examination without abnormal findings Lipid Panel 1 Year E78.00 - Pure hypercholesterolemia, unspecified, Z00.00 - Encounter for general adult medical examination without abnormal findings TSH reflex Free T4 1 Year E78.00 - Pure hypercholesterolemia, unspecified, Z00.00 - Encounter for general adult medical examination without abnormal findings Complete Blood Count Auto Diff 1 Year D64.9 - Anemia, unspecified, Z00.00 - Encounter for general adult medical examination without abnormal findings UA CC w/rflx Micro + Cult 1 Year R30.0 - Dysuria, Z00.00 - Encounter for general adult medical examination without abnormal findings Vitamin D 25-OH Total 1 Year E55.9 - Vitamin D deficiency, unspecified, Z00.00 - Encounter for general adult medical examination without abnormal findings Vitamin B12 and Folate 1 Year E53.8 - Deficiency of other specified B group vitamins, Z00.00 - Encounter for general adult medical examination without abnormal findings Medications: New cyanocobalamin (vitamin B-12) (Vitamin B-12) 500 mcg PO DAILY
== END 2025-03-04 17:18 | disposition home or self-care (01) ==
LOC: HO.HMCH 16:50
PROVIDERS: PCP Internal Medicine; Visit Provider Internal Medicine
DX: Z00.00 Encounter for general adult medical examination without abnormal findings (principal); J45.901 Unspecified asthma with (acute) exacerbation; D51.3 Other dietary vitamin B12 deficiency anemia; D64.9 Anemia, unspecified; E55.9 Vitamin D deficiency, unspecified

== ENCOUNTER → 2025-03-04 16:49 | Outpatient (BNVA) | payer OTHER, SELFPAY | PROVIDERS: PCP Internal Medicine; Visit Provider Internal Medicine | DX: Z00.00 Encounter for general adult medical examination without abnormal findings (principal); J45.901 Unspecified asthma with (acute) exacerbation; D51.3 Other dietary vitamin B12 deficiency anemia; E55.9 Vitamin D deficiency, unspecified; Z79.899 Other long term (current) drug therapy | CPT/HCPCS: 96127 ==